=== PATIENT | female | born 1970 | race Caucasian/White ===

== ENCOUNTER 2020-12-23 18:23 | Emergency (ER) | payer SELFPAY ==
--- NOTE | 2020-12-24 01:42 | NUR ---
PT AMBULATED TO BED 12 W STEADY GAIT.
[2020-12-24] MEDS ORDERED: KETOROLAC 30 MG/ML VIAL IM ONE (01:55)
[2020-12-24 02:04] LABS: APPEARANCE,URINE CLEAR (CLEAR); BILIRUBIN,URINE NEGATIVE (NEGATIVE); BLOOD, URINE NEGATIVE (NEGATIVE); COLOR,URINE YELLOW (YELLOW); LEUKOCYTE ESTERASE ,URINE NEGATIVE (NEGATIVE); NITRITE, URINE NEGATIVE (NEGATIVE); UGLUCOSE NEGATIVE (NEGATIVE)
[2020-12-24] MEDS ORDERED: NAPR-54 PO (03:35)
[2020-12-24 03:54] VITALS: BP 138/81
== END 2020-12-24 03:25 | disposition home or self-care (01) ==
LOC: MED 18:23
DX: R10.9 Unspecified abdominal pain (principal)
CPT/HCPCS: 81003; 81025; 96372; 99283; J1885; 81002